=== PATIENT | male | born 1985 | race Caucasian/White ===

== ENCOUNTER 2021-09-04 15:46 | Emergency (ER) | payer BC, SELFPAY ==
--- NOTE | ~2021-09-04 | CT_ITS ---
EXAMINATION: CT soft tissue neck w con DATE: 09/04/2021 20:18 INDICATION: Neck pain, difficulty swallowing. TECHNIQUE: Computed tomography (CT) of the neck was performed with 75 mL Omnipaque-300 intravenous co ntrast. Automated exposure control and iterative reconstruction technique were employed. The dose-lisy gth product was 585.30 mGy-cm. COMPARISON: None FINDINGS: The thyroid gland is unremarkable. The submandibular and parotid glands are symmetric. Benign-appea ring calcification in the subcutaneous tissue of the left cheek. There is no cervical lymphadenopathy . There are no masses identified. The superior mediastinum is unremarkable. The airway is unrem arkable. Parapharyngeal and pre-glottic fat planes are preserved. No occlusion, dissection, or si gnificant stenosis in the visualized neck vessels. The orbits are unremarkable. Mucosal thickening and opacification in the left middle and posterior ethmoid air cells. Clear lungs. No acute osseou s finding. IMPRESSION: 1. Normal CT soft tissue neck findings. Reviewed, dictated and finalized at location K.
[2021-09-04 15:57] VITALS: BP 129/88; PULSE 85; RESP 18; TEMP 36.7; O2SAT 96
--- NOTE | 2021-09-04 18:15 | ED.GENADULT ---
HPI - General Adult General Chief complaint: Unspecified Stated complaint: THROAT, DIFF SWALLOWING Time Seen by Provider: 09/04/21 18:15 Source: patient Mode of arrival: ambulatory Limitations: no limitations History of Present Illness HPI narrative: The patient is a 35-year-old male with a history of obstructive sleep apnea presenting to the emergency department for evaluation of throat discomfort. Patient states he feels as if his throat is swollen and he has something draining in his throat. Reports sensation of drainage and vocal hoarseness. Patient reports that his symptoms have been present intermittently since May when he initially felt a pinching sensation in his throat. Patient states this would come and go spontaneously but seem to be worse whenever he was doing in person nations or vocal exercises. Patient denies fever, neck swelling. He denies pain with movement. He denies history of thyroid problems in the past. Patient has never been evaluated by a physician for this. He denies sore throat currently and he has been able to swallow. He denies chest pain or shortness of breath. Patient states that today he made a popping sensation trying to imitate what it would sound like to open a jar when he felt drainage in his throat. This prompted his visit to the ER [facility]. Patient also states he has a history of seasonal allergies, sinus drainage, states that he and his primary care physician recently changed his medications and he feels like his drainage is actually much improved. Related Data Allergies Allergy/AdvReac Type Severity Reaction Status Date / Time No Known Allergies Allergy Verified 09/04/21 18:24 Review of Systems Review of Systems: CONSTITUTIONAL: Denies fever CARDIOVASCULAR: Denies chest pain HEENT: Reports difficulty swallowing, reports sinus drainage RESPIRATORY: Denies cough or dyspnea. GASTROINTESTINAL: Denies abdominal pain SKIN: Denies rash MUSCULOSKELETAL: Denies back pain NEUROLOGIC: Denies headache [facility] Social History Social History (Updated 09/04/21 @ 19:14 by Caprice Abreu MD) Smoking status: Never smoker Alcohol intake: current Alcohol use details: Social, rarely Substance use: never Living arrangements: with family Gender identity (if verbalized by the patient): Male Exam Narrative: GENERAL: Awake, alert, conversant HEAD: Normocephalic, atraumatic. EYES: PERRLA and EOMI. ENT: Nares clear, no rhinorrhea or epistaxis. Mucous membranes moist. NECK: Supple. No thyromegaly. Uvula is midline. Oropharynx is clear. No deviation of the palate. No trismus. No anterior cervical lymphadenopathy. CHEST: No respiratory distress, breathing even and non labored HEART: Regular rate, sinus rhythm ABDOMEN:Non distended, non tender EXTREMITIES: Normal range of motion. No edema. SKIN: Warm, dry, no rash. NEURO:No focal deficits. Alert and oriented x3 Course Vital Signs Vital signs: Vital Signs Temperature 36.7 C 09/04/21 15:57 Pulse Rate 85 09/04/21 15:57 Respiratory Rate 18 09/04/21 15:57 Blood Pressure 129/88 09/04/21 15:57 Pulse Oximetry 96 09/04/21 15:57 Temperature 36.7 C 09/04/21 15:57 Pulse Rate 85 09/04/21 15:57 Respiratory Rate 18 09/04/21 15:57 Blood Pressure 129/88 09/04/21 15:57 Pulse Oximetry 96 09/04/21 15:57 Medical Decision Making [facility] Narrative Medical decision making narrative: Patient presenting for evaluation of difficulty swallowing, the time of assessment exam is very reassuring. Patient with normal vital signs, oxygenating well. There is no trismus or evidence of mass or severe infection at the time of assessment. No evidence of deep space infection. Laboratory results are reassuring. CT of the neck is normal without evidence of mass, RPA, angioedema, epiglottitis. Patient vital signs are stable and I advised him to continue his medication. Patient was given a dose of Decadron in the ER and I rosa
[2021-09-04 19:46] LABS: Basophils Percent Auto 0.4 % (0.2-1.2); Eosinophils Absolute Auto 0.2 K/mm3 (0-0.3); Eosinophils Percent Auto 2.1 % (0-4.4); Hematocrit 41.5 % (42.0-52.0); Hemoglobin 14.6 g/dL (14.0-18.0); Immature Granulocyte Absolute 0.02 K/mm3 (0.00-0.031); Immature Granulocyte Percent A 0.3 % (0-0.5); Lymphocytes Absolute Auto 2.95 K/mm3 (0.9-3.2); Lymphocytes Percent Auto 40.8 % (18.3-44.2); Mean Corpuscular HGB Conc 35.2 g/dl (32-36); Mean Corpuscular Hemoglobin 31.4 pg (26-34); Mean Corpuscular Volume 89.2 fl (80-100); Mean Platelet Volume 9.6 fl (7.4-10.4); Monocytes Absolute Auto 0.5 K/mm3 (0.1-0.6); Monocytes Percent Auto 6.9 % (2.6-8.5); Neutrophils Absolute Auto 3.6 K/mm3 (1.3-6.7); Neutrophils Percent Auto 49.5 % (45.5-73.1); Platelet Count Result 216 k/mm3 (150-375); Red Blood Count 4.65 M/mm3 (4.6-6.20); Red Cell Distribution Width 11.7 % (11.5-14.5); White Blood Count 7.2 K/mm3 (4.5-10.0)
[2021-09-04 19:59] LABS: Anion Gap 7 mmol/L (8-16); Blood Urea Nitrogen 22 mg/dL (9-20); Calcium 8.7 mg/dL (8.4-10.2); Carbon Dioxide 26 mmol/L (22-30); Chloride 104 mmol/L (98-107); Estimated CRCL calculation 101 ml/min; Estimated Glomerular Filt Rate > 60; Glucose 98 mg/dL (65-110); Potassium 4.1 mmol/L (3.4-5.0); Sodium 137 mmol/L (137-145)
[2021-09-04 21:14] VITALS: BP 122/80; PULSE 71; RESP 16; O2SAT 98
== END 2021-09-04 20:58 | disposition home or self-care (01) ==
PROVIDERS: Emergency Provider Emergency Medicine; PCP Family Medicine
DX: R09.82 Postnasal drip (principal)
CPT/HCPCS: 36415; 70491; 80048; 85025; 96374; 99284; J1100; Q9967